=== PATIENT | male | born 1950 | race Caucasian/White ===

== ENCOUNTER → 2018-02-14 | Outpatient (CLI) | payer OTHER ==
[~2018-02-14] MED LIST: FENOFIBRATE134 MG PO; FORTAMET1000 MG PO; GLIPIZIDE5 MG PO; HUMALOG100 UNIT/1; JANUMET XR 50-1 EAC1 PO; ROSUVASTATIN CA10 MG PO
== END | disposition home or self-care (01) ==
LOC: LAB 07:57
DX: E78.9 Disorder of lipoprotein metabolism, unspecified (principal); E55.9 Vitamin D deficiency, unspecified; E66.8 Other obesity; E11.51 Type 2 diabetes mellitus with diabetic peripheral angiopathy without gangrene; E11.42 Type 2 diabetes mellitus with diabetic polyneuropathy; G62.9 Polyneuropathy, unspecified; E11.65 Type 2 diabetes mellitus with hyperglycemia; E03.8 Other specified hypothyroidism; I11.9 Hypertensive heart disease without heart failure

== ENCOUNTER 2018-02-22 06:00 | Day surgery (SDC) | payer OTHER | END 2018-02-22 21:15 | disposition home or self-care (01) | LOC: CIR.AMB 06:00 | DX: K40.90 Unilateral inguinal hernia, without obstruction or gangrene, not specified as recurrent (principal) ==

== ENCOUNTER 2020-08-28 10:20 | Outpatient (CLI) | payer OTHER | END 2020-08-28 10:30 | disposition home or self-care (01) | LOC: LAB 10:20 | PROVIDERS: ATTEND Urology | DX: R97.20 Elevated prostate specific antigen [PSA] (principal) ==

== ENCOUNTER 2020-10-16 07:32 | Outpatient (CLI) | payer OTHER | END 2020-10-16 07:44 | disposition home or self-care (01) | LOC: SONOGRAMA 07:32 | PROVIDERS: ATTEND Urology | DX: D29.1 Benign neoplasm of prostate (principal); R97.20 Elevated prostate specific antigen [PSA] ==

== ENCOUNTER 2021-10-30 09:15 | Outpatient (CLI) | payer OTHER | END 2021-10-30 10:15 | disposition home or self-care (01) | LOC: ASH CLINIC 09:15 | PROVIDERS: ATTEND Emergency Medicine Pediatric Emergency Medicine | DX: U07.1 COVID-19 (principal) ==